=== PATIENT | female | born 1980 | race African-American/Black ===

== ENCOUNTER 2024-04-24 19:57 | Emergency (ER) | payer OTHER ==
[2024-04-24 20:04] VITALS: BP 129/85
[2024-04-24 20:31] LABS: URINE BILIRUBIN - DIPSTICK Negative (NEGATIVE); URINE BLOOD DIPSTICK Small (NEGATIVE); URINE GLUCOSE - DIPSTICK Negative (NEGATIVE); URINE KETONE Negative (NEGATIVE); URINE LEUK ESTERASE Negative (NEGATIVE); URINE NITRITE - DIPSTICK Negative (Negative); URINE PH 5.5 (4.5-8.0); URINE PROTEIN - DIPSTICK Negative (NEG-TRACE); URINE SPECIFIC GRAVITY <=1.005; URINE UROBILINOGEN - DIPSTICK 0.2 E.U./dL (0.2)
[2024-04-24 20:32] LABS: BASO% 0.3 % (0-3); HEMATOCRIT 37.3 % (37.0-47.0); HEMOGLOBIN 12.7 g/dl (12.0-16.0); IMMATURE GRANULOCYTES 0.3 % (0.0-5.0); LYMPH% 31.1 % (15-41); MEAN CELL VOLUME 84.8 fL CALC (80.0-100.0); MEAN CORPUSCULAR HGB 28.9 pG CALC (26.0-32.0); MONO% 8.2 % (2-13); NEUT# 3.96 thou/uL (2.00-7.15); NEUT% 56.1 % (42-76); RED BLOOD COUNT 4.4 mill/uL (4.20-5.60); RED CELL DISTRI WIDTH 12.2 % (11.5-15.5)
[2024-04-24 20:32] LABS: URINE COLOR Yellow
[2024-04-24 20:39] LABS: URINE SQUAMOUS EPITHELIAL CELL FEW EPI/hpf (0-FEW); URINE WBC 0-2 WBC/hpf (0-5)
[2024-04-24 20:50] LABS: CREATININE 0.7 mg/dL (0.5-1.0); POTASSIUM 4.6 mmol/l (3.5-5.1)
[2024-04-24 21:49] VITALS: BP 129/85
== END 2024-04-24 22:00 | disposition home or self-care (01) | DRG 779 ==
LOC: ED 19:57
PROVIDERS: Family Medicine
DX: O02.1 Missed abortion (principal)

== ENCOUNTER 2024-08-17 14:52 | Emergency (ER) | payer OTHER ==
[~2024-08-17] VITALS: Ht 167.6 cm; Wt 75.0 kg
[2024-08-17] VITALS (13 sets, daily range): BP systolic 91–133; BP diastolic 54–78
[2024-08-17] MEDS ORDERED: LACTATED RINGER'S 1,000 ML IV ONE (15:15)
[2024-08-17 15:31] LABS: BASO% 0.2 % (0-3); HEMATOCRIT 37.8 % (37.0-47.0); HEMOGLOBIN 12.7 g/dl (12.0-16.0); IMMATURE GRANULOCYTES 0.2 % (0.0-5.0); LYMPH% 16.4 % (15-41); MEAN CELL VOLUME 83.4 fL CALC (80.0-100.0); MEAN CORPUSCULAR HGB CONC 33.6 g/dL CAL (32.0-36.0); MONO% 7.9 % (2-13); NEUT# 7.29 thou/uL (2.00-7.15); NEUT% 74.3 % (42-76); RED BLOOD COUNT 4.53 mill/uL (4.20-5.60)
[2024-08-17 15:39] LABS: ALBUMIN 4.5 g/dL (3.2-5.0); ALKALINE PHOSPHATASE 33 u/l (38-126); ANION GAP 13 (6-22 (CALC)); BILIRUBIN, TOTAL 1.2 mg/dL (0.02-1.3); BUN 11 mg/dL (7-17); BUN/CREATININE RATIO 16 (12-20 (CALC)); CARBON DIOXIDE 23 mmol/l (22-30); CHLORIDE 104 mmol/l (95-108); CREATININE 0.7 mg/dL (0.5-1.0); ESTIMATED GFR 109 ML/MIN (>=90 (CALC)); POTASSIUM 4.4 mmol/l (3.5-5.1); SGOT/AST 51 u/l (14-36); SODIUM 135 mmol/l (137-146); TOTAL PROTEIN 8.1 g/dL (6.3-8.2)
[2024-08-17 17:28] LABS: URINE BILIRUBIN - DIPSTICK Negative (NEGATIVE); URINE BLOOD DIPSTICK Negative (NEGATIVE); URINE GLUCOSE - DIPSTICK Negative (NEGATIVE); URINE KETONE Negative (NEGATIVE); URINE LEUK ESTERASE Trace (NEGATIVE); URINE NITRITE - DIPSTICK Negative (Negative); URINE PH 5.5 (4.5-8.0); URINE PROTEIN - DIPSTICK Negative (NEG-TRACE); URINE SPECIFIC GRAVITY <=1.005; URINE UROBILINOGEN - DIPSTICK 0.2 E.U./dL (0.2)
[2024-08-17 17:30] LABS: URINE COLOR Yellow
[2024-08-17] MEDS ORDERED: DOXYCYCLINE HYCLATE 100 MG/CAP PO ONE (19:40)
[2024-08-17] MEDS ORDERED: VIBRAMYCIN100 M2 PO (19:56)
== END 2024-08-17 21:17 | disposition home or self-care (01) | DRG 195 ==
LOC: ED 14:52
PROVIDERS: Family Medicine; Nurse Practitioner
DX: J18.9 Pneumonia, unspecified organism (principal); R55 Syncope and collapse
CPT/HCPCS: Q9967